=== PATIENT | female | born 1955 | race Caucasian/White ===

== ENCOUNTER 2019-05-12 11:50 | Emergency (ER) | payer MEDICARE, SELFPAY ==
[2019-05-12 12:03] VITALS: BP 118/82; PULSE 88; RESP 16; TEMP 36.3; O2SAT 100
--- NOTE | 2019-05-12 12:09 | ED.UPPEXIN ---
HPI - Extremity Injury (Upper) General Chief Complaint: Extremity Injury, Upper Stated Complaint: L FOREARM INJURY Time Seen by Provider: 05/12/19 12:09 Source: patient and RN notes reviewed Mode of arrival: ambulatory Limitations: no limitations History of Present Illness HPI narrative: 64-year-old female who presents to [facility] care with complaints of injury to her left forearm from fall which occurred when she got up out of bed to use restroom and fell into the TV stand hitting her left forearm 4 days ago. Patient states that she did not injury anything else and just lost her balance when she got up. 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 Patient has red contused skin to the inner aspect of her left forearm, full mobility of arm and hand noted, sensation and circulation is intact MD complaint: injury to: left Onset (ago): day(s) (4) Other Extremity Injury: Left: forearm Other injuries: none Handedness: left Place: home Severity: mild Severity scale (1-10): 3 Relieving factors: none Exacerbating factors: none Context: fall Associated symptoms: denies other symptoms Treatments prior to arrival: other (has applied heat to forearm) Related Data Home Medications Medication Instructions Recorded Confirmed amlodipine 05/12/19 atorvastatin 05/12/19 carvedilol 05/12/19 clonazepam 05/12/19 clonazepam 05/12/19 losartan 05/12/19 mirabegron [Myrbetriq] mg PO 05/12/19 zolpidem 05/12/19 Allergies Allergy/AdvReac Type Severity Reaction Status Date / Time CEPHALEXIN MONOHYDRATE Allergy UPPER LIP Uncoded 01/07/13 10:37 SWELLING Review of Systems Review of Systems: Narrative: CONSTITUTIONAL: Denies fever, chills, or sweats. EYES: Denies visual changes, redness, or discharge. ENT: Denies rhinorrhea, congestion, sore throat, or otalgia. CARDIOVASCULAR: Denies chest pain, palpitations, or edema. RESPIRATORY: Denies cough or dyspnea. GASTROINTESTINAL: Denies abdominal pain, nausea, vomiting, or diarrhea. GENITOURINARY: Denies dysuria or hematuria. SKIN: Denies rash or itching. reddish brusing to inner left forearm from fall,voices minimal discomfort to skin with palpation, rates pain 3/10 MUSCULOSKELETAL: Denies back pain, joint pain, or myalgia. NEUROLOGIC: Denies headache, numbness,patient has residual weakness to left side of body from past subdural hematoma. PSYCHIATRIC: Denies anxiety or depression. All systems reviewed & are unremarkable except as noted in HPI and below PMFSH Past Medical History Medical History (Updated 05/12/19 @ 17:52 by Marlene Colon NP) Arthritis MVP (mitral valve prolapse) Post-menopausal Subdural hematoma Surgical History Surgical History (Updated 05/12/19 @ 14:49 by Marlene Colon NP) H/O parathyroidectomy History of craniotomy History of right hip replacement History of total right knee replacement (TKR) Social History Social History (Updated 05/12/19 @ 17:51 by Marlene Colon NP) Smoking status: Former smoker Tobacco type: cigarettes Smoking end date: 02/24/83 Alcohol intake: former Alcohol use details: no alcohol for 5-6 years Living arrangements: alone Gender identity (if verbalized by the patient): Female Comments At time of signature, agree with nursing past medical,surgical, social history. There is no relevant family history pertinent to the presenting complaint Exam Narrative: Exam Narrative: GENERAL: Well-appearing, well-nourished, and in no acute distress.denies any other injury but to left forearm with fall 4 days ago, gait slightly unsteady uses cane to assist with ambulation. HEAD: Normocephalic, atraumatic. EYES: PERRLA and EOMI. ENT: Nares clear, no rhinorrhea or epistaxis. Mucous membranes moist. NECK: Supple. no lymphadenopathy CHEST: Clear to auscultation. No respiratory distre
== END 2019-05-12 12:45 | disposition home or self-care (01) ==
PROVIDERS: Emergency Provider Registered Nurse
DX: S50.12XA Contusion of left forearm, initial encounter (principal); W19.XXXA Unspecified fall, initial encounter; Z87.891 Personal history of nicotine dependence; Z96.641 Presence of right artificial hip joint; Z96.651 Presence of right artificial knee joint; M19.90 Unspecified osteoarthritis, unspecified site; I34.1 Nonrheumatic mitral (valve) prolapse
CPT/HCPCS: 99202; G0463

== ENCOUNTER 2019-11-26 06:49 | Outpatient (NON) | payer MEDICARE, SELFPAY ==
[2019-11-27 14:13] LABS: SARS-CoV-2 RNA PCR Negative
== END 2019-11-26 06:50 ==
PROVIDERS: PCP Family Medicine; Visit Provider Nurse Practitioner Family
DX: Z20.828 Contact with and (suspected) exposure to other viral communicable diseases (principal); R43.2 Parageusia; R68.89 Other general symptoms and signs
CPT/HCPCS: 87635; C9803; U0003

== ENCOUNTER 2019-11-30 11:09 | Outpatient (NON) | payer MEDICARE, SELFPAY ==
[2019-12-01 00:38] LABS: SARS-CoV-2 RNA PCR Negative
== END 2019-11-30 11:10 ==
PROVIDERS: PCP Family Medicine; Visit Provider Nurse Practitioner Family
DX: Z20.828 Contact with and (suspected) exposure to other viral communicable diseases (principal); R43.2 Parageusia; R50.9 Fever, unspecified; R68.89 Other general symptoms and signs
CPT/HCPCS: 87635; C9803; U0003

== ENCOUNTER 2019-12-30 10:30 | Emergency (ER) | payer MEDICARE, SELFPAY ==
[2019-12-30] VITALS (16 sets, daily range): BP systolic 109–178; BP diastolic 56–110; PULSE 52–101; RESP 12–21; TEMP 36.3; O2SAT 99–100
--- NOTE | ~2019-12-30 | XR_ITS ---
EXAMINATION: XR chest ET placement, XR abdomen NG/feed tube insert DATE: 12/30/2019 11:15 INDICATION: Altered mental status. Endotracheal tube placement and nasogastric tube placement. TECHNIQUE: 1. Frontal view of the chest was obtained. 2. Portable AP supine view of the abdomen and pelvis. COMPARISON: Chest radiograph dated 08/11/2012 FINDINGS: CHEST: Endotracheal tube tip 7.4 cm above the kacie. The apices of the lungs are excluded from the field-of -view. There are opacities at the medial aspect of the left lower lung zone suggesting left lower lob ar collapse. Blunting at the left costophrenic angle could represent a small left pleural effusion. R ight lung is clear. No pulmonary edema or evident pneumothorax although the cephalad margin of the ap ices of lungs is excluded from the [id number]. The cardiomediastinal silhouette is normal. KUB: Nasogastric tube tip in proximal side port in the body of the stomach. No dilated loops of bowel to s uggest obstruction. Lumbar dextro scoliosis with severe spondylosis. Partially visualized right total hip arthroplasty. IMPRESSION: 1. Endotracheal tube tip 7.4 cm above the kacie. Consider advancement by 5 cm. 2. Opacities in the left lower lung zone suggesting left lower lobar collapse although differential w ould include pneumonia. 3. Small left pleural effusion. 4. Nasogastric tube in the stomach. Reviewed, dictated and finalized at location A. LER IMPRESSION: 1. Endotracheal tube tip 7.4 cm above the kacie. Consider advancement by 5 cm. 2. Opacities in the left lower lung zone suggesting left lower lobar collapse a lthough differential would include pneumonia. 3. Small left pleural effusion. 4. Nasogastric tube in the stomach.
--- NOTE | ~2019-12-30 | CT_ITS ---
EXAMINATION: CT brain wo con EXAM DATE: 12/30/2019 12:01 INDICATION: Temporary change in awareness. TECHNIQUE: Spiral CT of the head was performed without contrast. Axial, coronal and sagittal images were reviewed. The dose-length product (DLP) for this examination was 605.33 mGy-cm. The exposure w as tailored according to patient size, and iterative reconstruction (ASIR) was used as additional dos e reduction technique. Comparison is made to prior examination from 08/17/2012. FINDINGS: There is large acute right-sided subdural hematoma, thickest overlying the frontal lobe at 2.6 cm, with about 13 mm of contralateral midline shift. There is also some uncal herniation with int raparenchymal Duret hemorrhages in the ld extending to the right tectal plate, and also in the left thalamus. I discussed these findings with Elton Sanderson MD at 12/30/2019 12:08 HAZARDOUS MATERIALS DRIVER. The right lateral ventricle is nearly completely effaced. Can't exclude early obstructive hydrocephal us of the lateral ventricles given appearance of the left lateral ventricular temporal horn. 3rd and 4th ventricles are normal in size. There is an old left-sided craniotomy. No evidence of scalp contus ion. Mucus or blood in the nasopharynx. Some microangiopathy and cerebral atrophy. IMPRESSION: Large acute right-sided subdural hematoma with herniations and Duret hemorrhages in ld and left thalamus. Possible early lateral ventricular obstructive hydrocephalus. Emergent neurosurgi lynda consult. Reviewed, dictated and finalized at location B. RDOUS MATERIALS DRIVER IMPRESSION: Large acute right-sided subdural hematoma with herniations and Dure t hemorrhages in ld and left thalamus. Possible early lateral ventricular obs tructive hydrocephalus. Emergent neurosurgical consult.
--- NOTE | 2019-12-30 10:37 | PC.NURSE ---
1037 30mg of etomidate, 100mg of succs for rapid sequence intubation 1039 ET tube placed 7.5 used. 25cm at the lip
--- NOTE | 2019-12-30 10:43 | ECG_ITS ---
Measurements Intervals [place] Rate: 68 P: 73 LA: 134 QRS: 53 QRSD: 94 T: 52 QT: 416 QTc: 445 Interpretive Statements SINUS RHYTHM VENTRICULAR PREMATURE COMPLEXES LEFT VENTRICULAR HYPERTROPHY AND ST-T CHANGE BASELINE ARTIFACT- I, II, III, AVR, AVL, AVF, V2-V6 BORDERLINE ECG Electronically Signed On 12-30-2019 10:47:47 WHITE WORK CLEANER by Guzman Amaro D.O.
--- NOTE | 2019-12-30 10:45 | ECG_ITS ---
Measurements Intervals [place] Rate: 86 P: 67 OR: 128 QRS: 52 QRSD: 93 T: 79 QT: 387 QTc: 463 Interpretive Statements SINUS RHYTHM ST ABNORMALITY IN ANTEROLATERAL LEADS- CONSIDER ISCHEMIA BASELINE WANDER- I, II, III, AVF ABNORMAL ECG Electronically Signed On 01-03-2020 13:35:49 BLASTING MACHINE OPERATOR by Guzman Amaro D.O.
[2019-12-30 10:57] LABS: Basophils Percent Auto 0.3 % (0.2-1.2); Eosinophils Percent Auto 0.2 % (0-4.4); Hematocrit 43.2 % (37.0-47.0); Hemoglobin 14.7 g/dL (12.0-15.0); Immature Granulocyte Absolute 0.03 K/mm3 (0.00-0.031); Immature Granulocyte Percent A 0.3 % (0-0.5); Lymphocytes Absolute Auto 1.88 K/mm3 (0.9-3.2); Lymphocytes Percent Auto 17.8 % (18.3-44.2); Mean Corpuscular Volume 93.9 fl (80-100); Mean Platelet Volume 9.5 fl (7.4-10.4); Monocytes Absolute Auto 0.6 K/mm3 (0.1-0.6); Monocytes Percent Auto 5.7 % (2.6-8.5); Neutrophils Percent Auto 75.7 % (45.5-73.1); Platelet Count Result 325 k/mm3 (150-375); Red Cell Distribution Width 13.4 % (11.5-14.5); White Blood Count 10.6 K/mm3 (4.5-10.0)
[2019-12-30] MEDS: PROPOFOL IV EMULSION 100 ML 1.5 MG IV CONT (11:04)
[2019-12-30 11:07] LABS: INR 0.9; Partial Thromboplastin Time 24.7 SECONDS (22.3-36.8); Prothrombin Time 12.9 Seconds (11.1-14.7)
[2019-12-30 11:13] LABS: Add Urine Microscopic? YES; Appearance Urine Clear (Clear); Bilirubin Urine Negative (Negative); Blood Urine Negative (Negative); Color Urine Yellow (Yellow); Glucose Urine UA Negative (Negative); Ketones Urine 1+ mg/dL (Negative); Leukocyte Esterase Ur Negative LEU/UL (Negative); Mucus Urine Rare /lpf; Nitrate Urine Negative (Negative); Protein Urine Negative (Negative); RBC Urine 0-2 /hpf (0-2); Specific Grav Ur 1.017 (1.001-1.035); Urobilinogen Urine Negative mg/dL (<2.0); WBC Urine 0-3 /hpf
[2019-12-30 11:22] LABS: HCO3 ABG 24.6 mEq/l (22.0-26.0); PCO2 ABG 34.4 mmHg (35.0-45.0); PO2 ABG 420.6 mmHg (80.0-100.0); pH ABG 7.472 (7.350-7.450)
[2019-12-30 11:23] LABS: Amphetamine Screen Urine Negative (Negative); Barbiturate Screen Urine Negative (Negative); Benzodiazepines Screen Urine Negative (Negative); Cannabinoid Screen Urine Negative (Negative); Cocaine Screen Urine Negative (Negative); Methadone Screen Urine Negative (Negative); Opiate Screen Urine Negative (Negative); Phencyclidine Screen Urine Negative (Negative)
[2019-12-30 11:23] LABS: Base Excess ABG 1.4 mEq/l (+/-2.0); Oxygen Saturation ABG 99.9 % (95.0-100.0); Total Hemoglobin 13.6 g/dL (12.0-18.0)
[2019-12-30 11:24] LABS: Oxygen Content ABG 19.9 %vol (16.0-22.0); Oxyhemoglobin 98.5 % THb (90.0-100.0)
[2019-12-30 11:25] LABS: Device VENTILATOR; Fractional Inspired Oxygen 100 %; PO2 FiO2 Ratio Arterial Blood 4.21 %; Site Drawn RIGHT BRACHIAL
[2019-12-30 11:29] LABS: Arterial Blood Gas PEEP 5 cmH2O; Arterial Blood Gas Pressure Support 0 cmH2O; Arterial Blood Gas Tidal Volume 350 ml; Arterial Blood Gas Vent Mode CMV; Arterial Blood Gas Ventilator rate 14 /MIN
[2019-12-30 11:36] LABS: Glucose Point of Care 112 (65-105)
--- NOTE | 2019-12-30 11:38 | PC.NURSE ---
1138 ET tube was pulled to 21cm. ET tube pulled to 26cm after CXR results
[2019-12-30 11:48] LABS: Lactic Acid Reflex 2.7 mmol/L (0.7-2.1)
[2019-12-30 11:49] LABS: Acetaminophen < 10 ug/mL (10-30); Ethanol < 10 mg/dL (<10); Salicylate < 1.0 mg/dL (2-20)
[2019-12-30 11:53] LABS: Alanine Aminotransferase 18 U/L (4-35); Albumin Level 4.3 g/dL (3.5-5.1); Alkaline Phosphatase 78 U/L (38-126); Anion Gap 9 mmol/L (8-16); Aspartate Amino Transferase 43 U/L (14-36); Bilirubin,Total 1.2 mg/dL (0.2-1.3); Blood Urea Nitrogen 19 mg/dL (7-17); Calcium 9.8 mg/dL (8.4-10.2); Carbon Dioxide 29 mmol/L (22-30); Chloride 102 mmol/L (98-107); Creatine Kinase 81 U/L (30-135); Estimated CRCL calculation 73 ml/min; Estimated Glomerular Filt Rate > 60; Glucose 132 mg/dL (65-105); Potassium 4.9 mmol/L (3.4-5.0); Sodium 140 mmol/L (137-145)
--- NOTE | 2019-12-30 12:11 | ED.AMS ---
HPI - Altered Mental Status General Chief Complaint: Altered Mental Status Stated Complaint: unresponsive Time Seen by Provider: 12/30/19 10:43 History of Present Illness HPI narrative: Patient is a 64-year-old female who presents the ER unresponsive. Patient son called his mother this morning and she did not pickling drum operator the phone so went over check on her. Found her laying at the bedside unresponsive. EMS arrived. Noted pill bottles on the nightstand as well as a sleeping pill bottle that was nearly empty, it had been filled on 12/06. No details available related to this dosage and quantity. Patient is responsive to sternal rub but has sonorous respirations and her jaws clenched. Nasal airway was placed by EMS and patient received bagging in route. EMS attempted to give 2 of Narcan as patient has history of pill and alcohol abuse and there is no response. Son reports that the patient has been suffering from vertigo over the last month and has frequent falls at baseline due to chronic left-sided weakness and alcohol/pill abuse. Related Data Home Medications Medication Instructions Recorded Confirmed losartan 50 mg tablet 50 mg PO BID tablet 09/08/19 11/28/19 amlodipine 5 mg tablet 5 mg PO DAILY 12/20/19 atorvastatin 20 mg tablet 20 mg PO DAILY 12/20/19 carvedilol 12.5 mg tablet 12.5 mg PO Q12H 12/20/19 clonazepam 0.5 mg tablet 0.5 mg PO DAILY 12/20/19 losartan 50 mg tablet 50 mg PO BID 12/20/19 Allergies Allergy/AdvReac Type Severity Reaction Status Date / Time CEPHALEXIN MONOHYDRATE Allergy UPPER LIP Uncoded 12/20/19 14:08 SWELLING Review of Systems Review of Systems: ROS unobtainable: Yes unobtainable due to medical condition [facility] Past Medical History Medical History (Updated 12/30/19 @ 13:00 by Elton Sanderson MD) Arthritis Complicated bereavement MVP (mitral valve prolapse) Post-menopausal Subdural hematoma Surgical History Surgical History H/O parathyroidectomy History of craniotomy History of right hip replacement History of total right knee replacement (TKR) Social History Social History (Updated 12/20/19 @ 14:11 by Nica Root [facility]) Smoking packs per day: 0.5 Smoking cigarettes per day: 10.0 Years smoked: 10 Smoking pack-years: 5.00 Smoking status: Former smoker Tobacco type: cigarettes Second hand tobacco smoke exposure: No Smoking end date: 02/24/83 Alcohol intake: current Drinks per week: 2 Substance use: never Gender identity (if verbalized by the patient): Female Exam Narrative: Exam Narrative: GENERAL: illl-appearing, well-nourished, and inmoderate distress. HEAD: Normocephalic, atraumatic. EYES: Anisocoria with right pupil slightly larger than left pupil. The right pupil is poorly responsive to light and the left pupil sluggish. ENT: Mucous membranes moist. CHEST: Clear to auscultation. No respiratory distress. HEART: Regular rate and rhythm. Normal peripheral pulses. ABDOMEN: Soft, nontender, nondistended. EXTREMITIES: No deformity to the upper extremities. Localizes to pain with sternal rub. SKIN: Warm, dry, no rash. NEURO: GCS 7, E1V1M5. Anisocoria with sluggish pupils. Course Course Emergency Course: Patient's family updated on critical nature of patient's condition. I discussed the case with Dr. Sofia with neurosurgery at [facility]. He recommends transfer to the emergency department for further evaluation but states that this could potentially be a nonsurvivable injury. Dr. Foss in the ER has accepted the patient. An ambulance was readily available for transfer. Patient received 1 g of Keppra and 50 g of mannitol. ETT advanced to 26cm at the lip. Vital Signs Vital signs: Vital Signs Temperature 97.4 F L 12/30/19 10:31 Pulse Rate 98 12/30/19 10:31 Respiratory Rate 21 H 12/30/19 10:31 Blood Pressure 178/110 H 12/30/19 10:31 Pulse Oximetry 100 12/30/19 10:31 Temp
[2019-12-30] MEDS: levETIRAcetam 1000MG/NACL100ML 1,000 MG/100 ML BAG 400 MG IVPB (12:25)
[2019-12-30 12:37] LABS: Troponin I < 0.012 ng/mL (0.000-0.034)
[2019-12-30] MEDS: MANNITOL 25% 50 ML BTL IVPB (12:48)
[2019-12-30 14:35] LABS: Reflex Lactic Acid Yes or No Add Lactic
== END 2019-12-30 13:20 | disposition short-term general hospital (02) ==
PROVIDERS: Emergency Provider Emergency Medicine; PCP Family Medicine
DX: I62.00 Nontraumatic subdural hemorrhage, unspecified (principal); M19.90 Unspecified osteoarthritis, unspecified site; I34.1 Nonrheumatic mitral (valve) prolapse; E89.2 Postprocedural hypoparathyroidism; Z96.641 Presence of right artificial hip joint; Z87.891 Personal history of nicotine dependence; I49.3 Ventricular premature depolarization; R94.31 Abnormal electrocardiogram [ECG] [EKG]
CPT/HCPCS: 31500; 36415; 36600; 70450; 80053; 80307; 81001; 82550; 82805; 82948; 83605; 84484; 85025; 85610; 85730; 93005; 96365; 96366; 96368; 96375; 99291; J1953; J2150; J2704